=== PATIENT | male | born 1955 | race Caucasian/White ===

== ENCOUNTER 2020-09-03 09:42 | Inpatient (IN) | payer BC ==
[~2020-09-03] VITALS: Ht 193 cm; Wt 79.6 kg
[2020-09-03] VITALS (584 sets, daily range): BP systolic 101–136; BP diastolic 75–96; PULSE 88–110; TEMP 97.7–98.7; O2SAT 62–100
[~2020-09-03 09:42] MED LIST: DIOVAN HCT 12.51 TA1 PO; HYZAAR 25 MG-101 TAB PO; NEURONTIN100 MG/CAP PO; PLAVIX 75MG TAB75 MG PO
[2020-09-03 10:40] LABS: MEAN CELL VOLUME 96 fl (80.0-100.0); MEAN CORPUSCULAR HGB CONC 31 g/dl (33.0-37.0); MEAN PLATELET VOLUME 11.1 fl (7.4-10.4); PLATELET COUNT 210 K/mm3 (130-400); RED BLOOD COUNT 3.01 M/mm3 (4.20-5.60); REDCELL DISTRIBUTION WIDTH-CV 15.5 % (11.5-14.5)
[2020-09-03 10:49] LABS: INR 1.1 (0.8-3.0); PROTHROMBIN TIME 12.8 SECONDS (9.7-12.8)
[2020-09-03 10:54] LABS: HEMOGLOBIN 9.1 g/dl (13.5-18.0); MEAN CORPUSCULAR HEMOGLOBIN 30 pg (27.0-31.0)
[2020-09-03 10:56] LABS: ALBUMIN 3.1 gm/dL (3.5-5.0); BILIRUBIN,TOTAL 0.3 mg/dL (0.0-1.0); C-REACTIVE PROTEIN 1.4 mg/dL (0.0-0.9); CALCIUM 8.1 mg/dL (8.4-10.2); CREATININE, serum 1.06 (0.66-1.25); POTASSIUM 4.5 mmol/L (3.4-5.0); TOTAL PROTEIN 5.5 gm/dL (6.4-8.2)
[2020-09-03 11:05] LABS: LYMPHOCYTE 7 % (20.0-51.0); NEUTROPHILS 87 % (42.0-75.2)
[2020-09-03 11:06] LABS: HYPOCHROMIA 3+; OVALOCYTES 1+; PLATELET ESTIMATE NORMAL (NORMAL); POIKILOCYTOSIS 1+; SCHISTOCYTES 1+
[2020-09-03 11:31] LABS: HEMATOCRIT 25.3 % (42.0-52.0); HEMOGLOBIN 8.1 g/dl (13.5-18.0)
[2020-09-03 12:58] LABS: COLLECTION METHOD CLEAN CATCH
[2020-09-03 13:05] LABS: MUCOUS Present /lpf; PH 5 (5-8); SQUAMOUS EPITHELIAL None Seen /hpf; URINE APPEARANCE Clear; URINE BACTERIA None Seen /hpf; URINE BILIRUBIN Negative (NEGATIVE); URINE BLOOD 2+ (NEGATIVE); URINE COLOR Yellow; URINE GLUCOSE Negative (NEGATIVE); URINE KETONE Negative (NEGATIVE); URINE LEUKOCYTE ESTERASE Negative (NEGATIVE); URINE NITRATE Negative (NEGATIVE); URINE PROTEIN(semi-quant) Negative (NEGATIVE); URINE UROBILINOGEN Negative (NEGATIVE)
--- NOTE | 2020-09-03 13:33 | NUR ---
PT ADMITTED FROM ED WITH GI BLEED. PT TRANSFERED TO BED. VSS. PT SHOWING SR ON TELE. PT IS AXOX4. PT RECEIVED ONE UNIT PRBC IN ER. PT HAS R IJ CENTRAL PLACED IN ED. PT ORIENTED TO ROOM AND FLOOR. WILL CONTINUE TO [facility]. BEDSIDE.
[2020-09-03] MEDS ORDERED: ASPIRIN E.C. 8181 MG PO (14:35)
[2020-09-03] MEDS ORDERED: PLAVIX 75MG TAB75 MG PO (14:35)
[2020-09-03] MEDS ORDERED: [UNRECOGNIZED DRUG - OTHER] PO (14:44)
[2020-09-03 15:59] LABS: HEMATOCRIT 29.6 % (42.0-52.0); HEMOGLOBIN 9.8 g/dl (13.5-18.0)
[2020-09-03 16:25] LABS: ARTERIAL BLD GAS TCO2 CT 25.8; ARTERIAL BLOOD GAS HCO3 24.7 meq/L (22-26); ARTERIAL BLOOD GAS PCO2 35.9 mmHg (35-45); ARTERIAL BLOOD GAS PO2 82.5 mmHg (80-100); ARTERIAL BLOOD GAS pH 7.46 (7.35-7.45)
--- NOTE | 2020-09-03 17:11 | NUR ---
PT HAD A SMALL MAROON STOOL. PT'S VSS. PT DENIES DIZZINESS OR LIGHTHEADEDNESS. WILL CONTINUE TO MONITOR.
--- NOTE | 2020-09-03 17:24 | NUR ---
ON UNIT AND NOTIFIED OF PREVIOUS MAROON STOOL. NEXT H/H AT 2200. NO NEW ORDERS AT THIS TIME.
--- NOTE | 2020-09-03 20:13 | NUR ---
Patient reporting 7/10 throbbing right neck pain at insersion site of Right IJ. Patient received PRN tylenol earlier in the day for this pain but per patient was not effective. Site is clean dry and intact. Draws blood without difficulty. Patient also having frequent PVC's which have been present since arrival to the ICU. Called [facility] physician and received an order for PRN [place] and to obtain a BMP. Provider stated he would put in these orders.
[2020-09-03 21:03] LABS: CALCIUM 7.5 mg/dL (8.4-10.2); CREATININE, serum 0.85 (0.66-1.25); POTASSIUM 3.8 mmol/L (3.4-5.0)
[2020-09-03 22:10] LABS: HEMATOCRIT 26.1 % (42.0-52.0); HEMOGLOBIN 8.8 g/dl (13.5-18.0)
--- NOTE | 2020-09-03 22:29 | NUR ---
Received verbal consent from patient to update niece via telephone. All questions and concerns addressed at this time.
[2020-09-04] VITALS (551 sets, daily range): BP systolic 102–120; BP diastolic 68–91; PULSE 56–72; TEMP 97.7–98.2; O2SAT 76–100
[2020-09-04 06:27] LABS: BASO # 0.1 (0.0-0.2); BASO % 0.5 % (0.0-2.0); EOS # 0.3 (0.0-0.7); EOS % 2.7 % (0-4.0); GRAN # 6.2 (1.4-6.5); GRAN % 65.5 % (42.2-75.2); LYMPH % 21.1 % (20.0-51.0); MEAN CELL VOLUME 94 fl (80.0-100.0); MEAN CORPUSCULAR HGB CONC 32 g/dl (33.0-37.0); MEAN PLATELET VOLUME 10.6 fl (7.4-10.4); MONO # 0.9 (0.1-0.6); MONO % 9.5 % (1.7-9.3); PLATELET COUNT 132 K/mm3 (130-400); REDCELL DISTRIBUTION WIDTH-CV 16.1 % (11.5-14.5)
[2020-09-04 06:34] LABS: HEMATOCRIT 25.4 % (42.0-52.0); HEMOGLOBIN 8.1 g/dl (13.5-18.0); MEAN CORPUSCULAR HEMOGLOBIN 30 pg (27.0-31.0)
[2020-09-04 06:39] LABS: INR 1.1 (0.8-3.0); PROTHROMBIN TIME 12.8 SECONDS (9.7-12.8)
[2020-09-04 06:40] LABS: ALBUMIN 2.3 gm/dL (3.5-5.0); BILIRUBIN,TOTAL 0.4 mg/dL (0.0-1.0); CALCIUM 7.6 mg/dL (8.4-10.2); CREATININE, serum 0.83 (0.66-1.25); POTASSIUM 3.8 mmol/L (3.4-5.0); TOTAL PROTEIN 4.3 gm/dL (6.4-8.2)
--- NOTE | 2020-09-04 10:08 | NUR ---
Initial visit; Patient thanked Medical Registrar for looking in on him and offering encouragement and God's blessings.
--- NOTE | 2020-09-04 10:30 | NUR ---
Report given to KEEGAN Milian on medical floor. Patient brought to room 358. on tele monitor with IVF running, via wheelchair. Patient settled in room, RN called and notified that patient in room. Left patient with call light.
--- NOTE | 2020-09-04 10:54 | NUR ---
Pt arrived to medical unit room 358 at this time from ICU via WC. Report received from ORDNANCE ENGINEERING TECHNICIAN. Pt oriented to room. Assessment complete. Pt unable to confirm medications, PCP contacted for updated list. A&Ox4. Heart RRR. Lungs CTA. Bowel sounds audible all quadrants. Reports generalized chronic body aches and moderate pain to RIJ site. Right IJ w/o visible signs of complication. Call light in reach. Denies other needs.
[2020-09-04] MEDS ORDERED: LIPITOR 40MG TA40 MG PO (12:57)
[2020-09-04] MEDS ORDERED: ELIQUIS 5MG PO (13:00)
[2020-09-04] MEDS ORDERED: [UNRECOGNIZED DRUG - OTHER] PO (13:00)
[2020-09-04] MEDS ORDERED: TOPROL XL 25MG25 MG PO (13:01)
[2020-09-04] MEDS ORDERED: NORCO 325 MG-51 TAB PO (13:01)
[2020-09-04] MEDS ORDERED: CEPHALEXIN500 M1 PO (13:03)
[2020-09-04 16:42] LABS: HEMATOCRIT 24.3 % (42.0-52.0)
--- NOTE | 2020-09-04 18:33 | NUR ---
Occasional complaints of chronic body aches today, relieved by norco. No BMs since arrival to unit. LR currently infusing at 63 ml/hr. Pt resting in bed w/o complaint.
--- NOTE | 2020-09-04 20:00 | NUR ---
Report received, assumed care for welder 2nd shift. Assessment complete. VS stable. A&Ox3, Denies nausea/shortness of breath. States he hasnt had any bloody stools today. Rating pain to abdomen 6/10-described as ache-burn. [place] given per dr martins. Plan of care discussed for this shift to include HS meds/pain meds/antibiotics/calling for questions/concerns. Verbalizes understanding/denies needs. Call light in reach. will monitor.
[2020-09-05] VITALS (7 sets, daily range): BP systolic 103–124; BP diastolic 53–72; PULSE 63–86; TEMP 97.3–98.3
--- NOTE | 2020-09-05 05:37 | NUR ---
Rested off and on this shift. Received norco x2 for abdominal pain. Had several loose stools-brown in color-no blood noted. VS remained stable. Denies current needs. Call light in reach. Will monitor.
--- NOTE | 2020-09-05 07:10 | NUR ---
PATIENT CURRENTLY RESTING WITH CPAP ON. PATIENT DOES NOT C/O ANY PAIN AT THIS TIME. DENIES ANY NEEDS. WILL CONTINUE TO MONITOR. BED IN LOWEST POSITION. BED ALARM ON. CALL LIGHT WITHIN REACH.
[2020-09-05 07:14] LABS: BASO # 0.1 (0.0-0.2); BASO % 0.5 % (0.0-2.0); EOS # 0.4 (0.0-0.7); EOS % 4.8 % (0-4.0); GRAN # 6.3 (1.4-6.5); GRAN % 68.1 % (42.2-75.2); LYMPH # 1.6 (1.2-3.4); LYMPH % 17.1 % (20.0-51.0); MEAN CELL VOLUME 92 fl (80.0-100.0); MEAN CORPUSCULAR HGB CONC 33 g/dl (33.0-37.0); MONO # 0.8 (0.1-0.6); MONO % 8.7 % (1.7-9.3); PLATELET COUNT 140 K/mm3 (130-400); RED BLOOD COUNT 2.57 M/mm3 (4.20-5.60); REDCELL DISTRIBUTION WIDTH-CV 15.7 % (11.5-14.5)
[2020-09-05 07:23] LABS: HEMATOCRIT 23.6 % (42.0-52.0); HEMOGLOBIN 7.8 g/dl (13.5-18.0); MEAN CORPUSCULAR HEMOGLOBIN 30 pg (27.0-31.0)
[2020-09-05 07:24] LABS: PROTHROMBIN TIME 11.6 SECONDS (9.7-12.8)
[2020-09-05 07:31] LABS: ALBUMIN 2.4 gm/dL (3.5-5.0); BILIRUBIN,TOTAL 0.3 mg/dL (0.0-1.0); CALCIUM 7.9 mg/dL (8.4-10.2); CREATININE, serum 0.86 (0.66-1.25); POTASSIUM 3.9 mmol/L (3.4-5.0); TOTAL PROTEIN 4.5 gm/dL (6.4-8.2)
--- NOTE | 2020-09-05 11:28 | NUR ---
AUBRIE met with the patient to discuss discharge plan. The patient lives alone in [place]. His daughter, Jennifer (ph#[phone]), lives in [place]. He reports independence with ADLs and does not have any DME. The patient's PCP is Dr. Maria Guadalupe Alvarado and he receives his medications from [facility]. He reports no difficulties obtaining his meds. The patient does not have a DPOA-HC in EMR, but he states that he may have one completed and that his nephew, Kimo (ph#[phone]), or Kimo's would have been designated as his DPOA-HC. The patient states that he is not and has two living children: Jennifer and Ephraim. The patient plans to return home upon discharge. AUBRIE contacted the patient's nephew, Kimo. Kimo states that he believes that he does have a copy of the patient's DPOA-HC and that his , Shelby, is the patient's DPOA-HC. Kimo plans to talk to Shelby and look for the DPOA-HC. AUBRIE provided him with AUBRIE's phone number and email address. AUBRIE then received a phone call from Shelby. Shelby confirms that she is the patient's DPOA-HC and that she can email the document to AUBRIE tomorrow. Shelby reports that her legal name is Nasreen Devlin. AUBRIE to continue to follow as needed.
[2020-09-05 16:36] LABS: HEMOGLOBIN 7.8 g/dl (13.5-18.0)
--- NOTE | 2020-09-05 18:51 | NUR ---
BEDSIDE REPORT GIVEN TO KEEGAN MARK. PATIENT CURRENTLY SITTING UP IN BED VISITING WITH HIS DAUGHTER. DOES NOT COMPLAIN OF PAIN AT THIS TIME. CALL LIGHT IN REACH. BED IN LOWEST POSIION.
--- NOTE | 2020-09-05 19:49 | NUR ---
PATIENT WAS RECEIVED FAIR IN BED ON RA.IVFS ON GOOD PROGRESS.DENIES PAIN NO NEEDS AT THIS TIME.
[2020-09-06 03:52] VITALS: BP 129/81; PULSE 65; TEMP 97.8
--- NOTE | 2020-09-06 04:44 | NUR ---
Teo RN notified patient pulse decreases to high 40s nonsustained, currently 61. Teo RN will check on patient.
--- NOTE | 2020-09-06 04:52 | NUR ---
CRITICAL CARE CALLED ABOUT PTS HR GOING DOWN TO THE 40S AND HAVING MULTIFOCAL PVCS.CHECKED ON THE PATIENT HE IS FINE WITH NO CONCERNS.
--- NOTE | 2020-09-06 05:48 | NUR ---
PATIENT HAD A MANNY,IVFS CONTINUED.PT IS ON ROOM AIR.NO OTHER CONCERNS AT THIS TIME.
--- NOTE | 2020-09-06 07:05 | NUR ---
awake resting in bed, bedside shift report received from KEEGAN Bruce
[2020-09-06 07:09] LABS: PROTHROMBIN TIME 11.7 SECONDS (9.7-12.8)
[2020-09-06 07:13] LABS: BASO # 0.1 (0.0-0.2); BASO % 0.7 % (0.0-2.0); EOS # 0.5 (0.0-0.7); EOS % 6.1 % (0-4.0); GRAN # 5.6 (1.4-6.5); GRAN % 63.1 % (42.2-75.2); LYMPH # 1.8 (1.2-3.4); LYMPH % 20.5 % (20.0-51.0); MEAN CELL VOLUME 92 fl (80.0-100.0); MEAN CORPUSCULAR HGB CONC 33 g/dl (33.0-37.0); MEAN PLATELET VOLUME 10.8 fl (7.4-10.4); MONO # 0.8 (0.1-0.6); MONO % 8.6 % (1.7-9.3); PLATELET COUNT 176 K/mm3 (130-400); RED BLOOD COUNT 2.85 M/mm3 (4.20-5.60); REDCELL DISTRIBUTION WIDTH-CV 15.2 % (11.5-14.5)
[2020-09-06 07:17] LABS: HEMATOCRIT 26.1 % (42.0-52.0); HEMOGLOBIN 8.6 g/dl (13.5-18.0); MEAN CORPUSCULAR HEMOGLOBIN 30 pg (27.0-31.0)
[2020-09-06 07:23] LABS: ALBUMIN 2.9 gm/dL (3.5-5.0); BILIRUBIN,TOTAL 0.4 mg/dL (0.0-1.0); CALCIUM 8.5 mg/dL (8.4-10.2); CREATININE, serum 0.74 (0.66-1.25); POTASSIUM 3.7 mmol/L (3.4-5.0); TOTAL PROTEIN 5.2 gm/dL (6.4-8.2)
--- NOTE | 2020-09-06 07:45 | NUR ---
resting in bed and has had breakfast, full assessment completed, see interventions for further info, c/o pain to back and neck and medicated with hydrocodone 5mg 1 tab
[2020-09-06 08:11] VITALS: BP 124/78; PULSE 74; TEMP 98.3
--- NOTE | 2020-09-06 09:55 | NUR ---
occupational therapy in to work with patient,
--- NOTE | 2020-09-06 10:10 | NUR ---
up to bathroom and had semi liquid light black stool, specimen to th elab
--- NOTE | 2020-09-06 10:34 | NUR ---
SW received the patient's DPOA-HC and Living Will, via email from the patient's [id number], Teri Medina". SW placed the documents in the patient's chart. The patient's DPOA-HC is Shelby.
[2020-09-06 11:21] VITALS: BP 119/73; PULSE 71; TEMP 98.3
--- NOTE | 2020-09-06 12:00 | NUR ---
sitting up in bed eating lunch, states pain is beginning to return, will notify nurse when needs a pain pill
[2020-09-06 12:04] LABS: CLOSTRIDIUM DIFF A/B NEG; CLOSTRIDIUM DIFF A/B INTERP NonToxigenic C.diff
--- NOTE | 2020-09-06 13:30 | NUR ---
restint in bed, denies needs
--- NOTE | 2020-09-06 16:30 | NUR ---
continues to be in bed, has only had 3 semi liquid stools today
[2020-09-06 17:06] VITALS: BP 118/81; PULSE 61; TEMP 98.5
--- NOTE | 2020-09-06 17:15 | NUR ---
sitting up in bed eating supper, denies needs
[2020-09-06 20:00] VITALS: BP 108/72; PULSE 62; TEMP 98.2
--- NOTE | 2020-09-06 20:00 | NUR ---
PATIENT WAS RECEIVED CALM IN BED.DUE MEDS GIVEN,ASSESSMENT DONE.REPORTS PAIN,NORCO FIVEN.NO OTHER NEEDS AT THIS TIME
[2020-09-07 00:34] VITALS: BP 116/74; PULSE 67; TEMP 98.2
[2020-09-07 03:23] VITALS: BP 130/77; PULSE 68; TEMP 97.7
--- NOTE | 2020-09-07 05:23 | NUR ---
PATIENT HAD A RESTFUL NIGHT.DENIES DIARRHEA.DUE MEDS GIVEN PER MAR.NO OTHER NEEDS AT THIS TIME.
[2020-09-07 06:36] LABS: BASO # 0.1 (0.0-0.2); EOS # 0.6 (0.0-0.7); EOS % 6.6 % (0-4.0); GRAN # 5.2 (1.4-6.5); GRAN % 62.4 % (42.2-75.2); LYMPH # 1.7 (1.2-3.4); MEAN CELL VOLUME 93 fl (80.0-100.0); MEAN CORPUSCULAR HGB CONC 33 g/dl (33.0-37.0); MEAN PLATELET VOLUME 11.1 fl (7.4-10.4); MONO # 0.7 (0.1-0.6); MONO % 8.9 % (1.7-9.3); PLATELET COUNT 188 K/mm3 (130-400); REDCELL DISTRIBUTION WIDTH-CV 15.1 % (11.5-14.5)
--- NOTE | 2020-09-07 06:50 | NUR ---
Report with KEEGAN Bruce. Pt resting in bed with eyes closed, resp even and unlabored. Call light in reach.
[2020-09-07 06:51] LABS: HEMATOCRIT 25.2 % (42.0-52.0); HEMOGLOBIN 8.2 g/dl (13.5-18.0); MEAN CORPUSCULAR HEMOGLOBIN 30 pg (27.0-31.0)
[2020-09-07 06:54] LABS: CALCIUM 8.6 mg/dL (8.4-10.2); CREATININE, serum 0.79 (0.66-1.25); POTASSIUM 4.1 mmol/L (3.4-5.0)
--- NOTE | 2020-09-07 08:30 | NUR ---
Assessment complete. Pt sitting up in bed, A&O x 4, reports pain to legs and back 7 out of 10, PRN medication administered per orders. Pt also reports new pain to left side that improves with certain positioning, denies loose stools over night or this morning. Saline lock IV to left AC and right IJ triple lumen catheter without s/s of complicatins. No further needs reported. Call light in reach.
[2020-09-07 08:45] VITALS: BP 118/76; PULSE 72; TEMP 97.9
[2020-09-07] MEDS ORDERED: VANCOCIN H125 MG/CAP PO (09:30)
[2020-09-07] MEDS ORDERED: SPIRIVA RE2.5 MCG/Ac IH (09:30)
[2020-09-07] MEDS ORDERED: PROAIR HFA0.09 MG/AC IH (09:31)
[2020-09-07 12:02] VITALS: BP 109/74; PULSE 69; TEMP 98.4
[2020-09-07] MEDS ORDERED: NORCO 325 MG-51 TAB PO (14:48)
--- NOTE | 2020-09-07 16:58 | NUR ---
Discharge instructions reviewed with pt regarding new medications and follow-up appointments. Pt verbalizes understanding, discharged home, escorted out of facility via WC accompanied by ATM MECHANIC. Pt's daughter providing transportation home.
== END 2020-09-07 16:59 | disposition home or self-care (01) | DRG 871 ==
LOC: COL.ER 09:42 → MEDICAL 11:08 → ICU 11:08 → MEDICAL 09-04 10:56
PROVIDERS: Family Medicine; Hospitalist; Physician Assistant; ADMIT Internal Medicine
PROC: 02HV33Z Insertion of Infusion Device into Superior Vena Cava, Percutaneous Approach (ICD-10-PCS; principal; 2020-09-03)
DX: A41.9 Sepsis, unspecified organism (principal); R57.1 Hypovolemic shock; K57.91 Diverticulosis of intestine, part unspecified, without perforation or abscess with bleeding; E87.2 Acidosis; A04.72 Enterocolitis due to Clostridium difficile, not specified as recurrent; D62 Acute posthemorrhagic anemia; R65.20 Severe sepsis without septic shock; I72.3 Aneurysm of iliac artery; J44.9 Chronic obstructive pulmonary disease, unspecified; Z20.822 Contact with and (suspected) exposure to COVID-19; I73.9 Peripheral vascular disease, unspecified; I10 Essential (primary) hypertension; R00.0 Tachycardia, unspecified; Z79.02 Long term (current) use of antithrombotics/antiplatelets; Z95.5 Presence of coronary angioplasty implant and graft; Z87.891 Personal history of nicotine dependence
CPT/HCPCS: 99223-AI; 99232-AI; 99233-AI; 99239; C9113; J0696; J2405; J2543; J7030; J7120; P9016; Q9967

== ENCOUNTER 2020-10-13 07:52 | Day surgery (SDC) | payer BC ==
[~2020-10-13] VITALS: Ht 193 cm; Wt 80.5 kg
[~2020-10-13 07:52] MED LIST changes: +ASPIRIN E.C. 8181 MG PO; +CEPHALEXIN500 M1 PO; +ELIQUIS 5MG PO; +LIPITOR 40MG TA40 MG PO; +NORCO 325 MG-51 TAB PO; +PROAIR HFA0.09 MG/AC IH; +SPIRIVA RE2.5 MCG/Ac IH; +TOPROL XL 25MG25 MG PO; +VANCOCIN H125 MG/CAP PO; +[UNRECOGNIZED DRUG - OTHER] PO; +[UNRECOGNIZED DRUG - OTHER] PO
[2020-10-13 08:56] VITALS: BP 142/92; PULSE 60; TEMP 98.7
[2020-10-13 09:55] VITALS: BP 13/80; PULSE 78; TEMP 96.6
--- NOTE | 2020-10-13 09:55 | NUR ---
pt to bay 5 via cart from endo lab, pt walked to chair, gait steady. in room, offered snack and fluids, no c/o, call light in reach
[2020-10-13 10:10] VITALS: BP 137/98; PULSE 74
[2020-10-13 10:25] VITALS: BP 122/88; PULSE 70
--- NOTE | 2020-10-13 10:25 | NUR ---
Dr here to talk with pt concerning results, int d'cd intact, reviewed discharge inst. with pt on precautions, followup care with verbal understanding.
--- NOTE | 2020-10-13 10:50 | NUR ---
pt up in room dressed, no c/o, discharged via w/c to car
== END 2020-10-13 10:50 | disposition home or self-care (01) ==
LOC: SDCO 07:52
DX: Z12.11 Encounter for screening for malignant neoplasm of colon (principal); K57.30 Diverticulosis of large intestine without perforation or abscess without bleeding; K29.30 Chronic superficial gastritis without bleeding; K52.9 Noninfective gastroenteritis and colitis, unspecified; D50.0 Iron deficiency anemia secondary to blood loss (chronic); K21.00 Gastro-esophageal reflux disease with esophagitis, without bleeding; K29.80 Duodenitis without bleeding; K92.1 Melena; K62.89 Other specified diseases of anus and rectum; I10 Essential (primary) hypertension; I73.9 Peripheral vascular disease, unspecified; J44.9 Chronic obstructive pulmonary disease, unspecified; Z87.891 Personal history of nicotine dependence; G89.29 Other chronic pain; G62.9 Polyneuropathy, unspecified; Z20.822 Contact with and (suspected) exposure to COVID-19; M19.90 Unspecified osteoarthritis, unspecified site
CPT/HCPCS: J2704; J3010; J7120

== ENCOUNTER → 2021-01-12 | Outpatient (CLI) | payer BC ==
[~2021-01-12] MED LIST changes: +FERROUS SU325 MG/TAB PO; +INCRUSE EL62.5 MCG/A IH; +LIALDA 1.2 GM1.2 GM PO; +PREDNISONE10 MG PO
== END ==
LOC: COL.RAD 06:58
DX: Z12.2 Encounter for screening for malignant neoplasm of respiratory organs (principal); Z87.891 Personal history of nicotine dependence

== ENCOUNTER 2021-01-21 15:32 | Inpatient (IN) | payer BC ==
[~2021-01-21] VITALS: Ht 193 cm; Wt 77.3 kg
[~2021-01-21 15:32] MED LIST changes: -FERROUS SU325 MG/TAB PO; -INCRUSE EL62.5 MCG/A IH; -LIALDA 1.2 GM1.2 GM PO; -PREDNISONE10 MG PO
[2021-01-21 16:31] LABS: BASO # 0.1 (0.0-0.2); BASO % 0.7 % (0.0-2.0); EOS # 0.5 (0.0-0.7); EOS % 4.4 % (0-4.0); GRAN # 7.2 (1.4-6.5); GRAN % 68.1 % (42.2-75.2); HEMOGLOBIN 10.5 g/dl (13.5-18.0); LYMPH # 1.3 (1.2-3.4); LYMPH % 12.8 % (20.0-51.0); MEAN CELL VOLUME 78 fl (80.0-100.0); MEAN CORPUSCULAR HEMOGLOBIN 24 pg (27.0-31.0); MEAN CORPUSCULAR HGB CONC 31 g/dl (33.0-37.0); MEAN PLATELET VOLUME 10.4 fl (7.4-10.4); MONO # 1.4 (0.1-0.6); MONO % 13.3 % (1.7-9.3); PLATELET COUNT 428 K/mm3 (130-400); REDCELL DISTRIBUTION WIDTH-CV 22.7 % (11.5-14.5)
[2021-01-21 16:32] LABS: ALBUMIN 3.1 gm/dL (3.5-5.0); BILIRUBIN,TOTAL 0.2 mg/dL (0.0-1.0); CALCIUM 8.7 mg/dL (8.4-10.2); CREATININE, serum 0.67 (0.66-1.25); POTASSIUM 3.7 mmol/L (3.4-5.0); TOTAL PROTEIN 6.5 gm/dL (6.4-8.2)
[2021-01-21] MEDS ORDERED: INCRUSE EL62.5 MCG/A IH (16:33)
[2021-01-21 16:35] LABS: HEMATOCRIT 34.3 % (42.0-52.0)
[2021-01-21] MEDS ORDERED: NORCO 325 MG-51 TAB PO (18:33)
[2021-01-21 19:22] LABS: CLOSTRIDIUM DIFF A/B NEG; CLOSTRIDIUM DIFF A/B INTERP NonToxigenic C.diff
[2021-01-21 20:15] LABS: INR 1.2 (0.8-3.0); PROTHROMBIN TIME 13.5 SECONDS (9.7-12.8)
[2021-01-21 20:18] LABS: PARTIAL THROMBOPLASTIN TIME 27.9 SECONDS (26.0-37.0)
[2021-01-21 20:44] VITALS: BP 112/74; PULSE 82; TEMP 98.7
--- NOTE | 2021-01-21 22:50 | NUR ---
Pt came for GI Bleed. Pain rated 0/10. VSS. Pt has only one episode of bloody stool. Currently NPO. Will continue to monitor.
[2021-01-22] VITALS (8 sets, daily range): BP systolic 106–153; BP diastolic 61–103; PULSE 63–88; TEMP 97.7–99.5
[2021-01-22 00:45] LABS: HEMATOCRIT 30.5 % (42.0-52.0); HEMOGLOBIN 9.3 g/dl (13.5-18.0)
--- NOTE | 2021-01-22 03:58 | NUR ---
Pt is having bloody stool. currently on contact isolation for cdiff. Will continue to monitor.
[2021-01-22 07:21] LABS: MEAN CELL VOLUME 79 fl (80.0-100.0); MEAN CORPUSCULAR HGB CONC 31 g/dl (33.0-37.0); MEAN PLATELET VOLUME 10.8 fl (7.4-10.4); PLATELET COUNT 369 K/mm3 (130-400); RED BLOOD COUNT 3.74 M/mm3 (4.20-5.60); REDCELL DISTRIBUTION WIDTH-CV 22.4 % (11.5-14.5)
[2021-01-22 07:23] LABS: HEMATOCRIT 29.4 % (42.0-52.0); HEMOGLOBIN 9.1 g/dl (13.5-18.0); MEAN CORPUSCULAR HEMOGLOBIN 24 pg (27.0-31.0)
[2021-01-22 07:32] LABS: CALCIUM 8.2 mg/dL (8.4-10.2); CREATININE, serum 0.65 (0.66-1.25); POTASSIUM 3.8 mmol/L (3.4-5.0)
[2021-01-22 08:14] LABS: BAND 35 % (0-10); EOSINOPHIL 2 % (0-4); HYPOCHROMIA 1+; LYMPHOCYTE 14 % (20.0-51.0); METAMYELOCYTE 1 % (0-0); NEUTROPHILS 36 % (42.0-75.2); OVALOCYTES 1+; PLATELET ESTIMATE NORMAL (NORMAL); SCHISTOCYTES 1+
--- NOTE | 2021-01-22 10:59 | NUR ---
Patient is in bed, alert and oriented, VSS. reports no significant pain at this time. Fluids running. Order for UA. No further needs at this time. Call ligth within reach.
[2021-01-22 12:06] LABS: COLLECTION METHOD CLEAN CATCH
[2021-01-22 12:15] LABS: MUCOUS Present /lpf; PH 5 (5-8); SQUAMOUS EPITHELIAL 0-2 /hpf; URINE APPEARANCE Hazy; URINE BACTERIA None Seen /hpf; URINE BILIRUBIN Negative (NEGATIVE); URINE BLOOD Negative (NEGATIVE); URINE COLOR Yellow; URINE GLUCOSE Negative (NEGATIVE); URINE KETONE Negative (NEGATIVE); URINE LEUKOCYTE ESTERASE Negative (NEGATIVE); URINE NITRATE Negative (NEGATIVE); URINE PROTEIN(semi-quant) Negative (NEGATIVE); URINE RBC 0-2 /hpf; URINE UROBILINOGEN Negative (NEGATIVE)
--- NOTE | 2021-01-22 12:24 | NUR ---
Initial visit; Patient appeared unhappy to be interrupted. Supervisor Post Wave offered God's blessings and wished him well.
[2021-01-22 16:24] LABS: HEMATOCRIT 30.1 % (42.0-52.0); HEMOGLOBIN 9.1 g/dl (13.5-18.0)
--- NOTE | 2021-01-22 18:09 | NUR ---
Patient is oding ok along the day. VSS, Pain has being a constant and it is under control with prescribed medication. Reports no nausea or vomiting. No further needs at this time. Call light within reach.
--- NOTE | 2021-01-22 18:30 | NUR ---
Patient refusing liquid tray. Reports that he does not feel like having anything.
--- NOTE | 2021-01-22 18:30 | NUR ---
Patient report that he had 2 BM but not blood in them.
--- NOTE | 2021-01-22 21:16 | NUR ---
Pt seems a little depressed today. Pain rated 6/10. Dilaudid was given. Vss. Will continue to monitor.
[2021-01-23 03:51] VITALS: BP 110/69; PULSE 75; TEMP 98
[2021-01-23 07:14] LABS: BASO # 0.1 (0.0-0.2); BASO % 0.8 % (0.0-2.0); EOS # 0.3 (0.0-0.7); GRAN # 5.4 (1.4-6.5); GRAN % 63.8 % (42.2-75.2); HEMOGLOBIN 9.8 g/dl (13.5-18.0); LYMPH # 1.3 (1.2-3.4); LYMPH % 15.5 % (20.0-51.0); MEAN CELL VOLUME 80 fl (80.0-100.0); MEAN CORPUSCULAR HEMOGLOBIN 25 pg (27.0-31.0); MEAN CORPUSCULAR HGB CONC 31 g/dl (33.0-37.0); MEAN PLATELET VOLUME 11.3 fl (7.4-10.4); MONO # 1.3 (0.1-0.6); MONO % 15.3 % (1.7-9.3); PLATELET COUNT 387 K/mm3 (130-400); RED BLOOD COUNT 3.99 M/mm3 (4.20-5.60); REDCELL DISTRIBUTION WIDTH-CV 22.7 % (11.5-14.5)
[2021-01-23 07:23] LABS: ALBUMIN 2.6 gm/dL (3.5-5.0); BILIRUBIN,TOTAL 0.2 mg/dL (0.0-1.0); CALCIUM 8.3 mg/dL (8.4-10.2); CREATININE, serum 0.79 (0.66-1.25); POTASSIUM 3.8 mmol/L (3.4-5.0); TOTAL PROTEIN 5.7 gm/dL (6.4-8.2)
--- NOTE | 2021-01-23 07:34 | NUR ---
Patient is resting in bed watching TV, alert and oriented x4, reports pain in his abdomen of 5 out of 10, refuse pain medication at this time. No nause or vomiting. Last bowel movement at 0200 with clots and red blood. NS Fluids running at [address] Reports no appetite. No further needs at this time.
[2021-01-23 09:37] VITALS: BP 111/70; PULSE 80; TEMP 98
--- NOTE | 2021-01-23 11:40 | NUR ---
Plan is home independently unless otherwise specified by the doctor. SW completed phone assessment due to precautions. SW called room phone, patient agreeable to the assessment. Patient reports that he resides in [facility]. Patient reports that his PCP is Maria Guadalupe Miller at [facility]. Patient reports that he last visited a month ago. Patient shares that he also sees Dr. Haskins for Stints in legs and Dr. Marie for Uri, Dr. Odom/ Roberta for GI. Patient reports that he obtains medications from [facility] in [place]. Patient denies having use of any DME or care supports. Patient reports that he is not sure what else he may need because he does not feel like he know what is going on. Patient reports that is pain is a 6 and would like it managed. SW educated on services with case management. Will continue to follow for care.
[2021-01-23 12:59] VITALS: BP 91/65; PULSE 70; TEMP 98.2
[2021-01-23 16:05] VITALS: BP 102/82; PULSE 76; TEMP 97.8
--- NOTE | 2021-01-23 17:06 | NUR ---
Patient ask for pain medication. Rating 6 out of 10. PRN provided.
--- NOTE | 2021-01-23 18:33 | NUR ---
Patient is resting in bed, watching TV. Reports minimal changes in pain. Last BM at 1600. Indicates it was with some blood in it. Fluids running at 75ml/hr. Flagyl infusing. Refused to have dinner. No further needs at this time. Call light within reach.
[2021-01-23 19:25] VITALS: BP 93/68; PULSE 70; TEMP 98
--- NOTE | 2021-01-23 21:58 | NUR ---
Pt has been complaining about nausea. Zofran was given. Pain rated 0/10. BP is litlle soft. Will conitue to monitor.
[2021-01-23 23:59] VITALS: BP 96/79; PULSE 79; TEMP 98.5
[2021-01-24 03:54] VITALS: BP 105/79; PULSE 89; TEMP 98.3
[2021-01-24 06:54] LABS: BASO # 0.1 (0.0-0.2); BASO % 0.9 % (0.0-2.0); EOS # 0.4 (0.0-0.7); EOS % 4.2 % (0-4.0); GRAN # 6.4 (1.4-6.5); GRAN % 68.7 % (42.2-75.2); LYMPH % 11.2 % (20.0-51.0); MEAN CELL VOLUME 79 fl (80.0-100.0); MEAN CORPUSCULAR HGB CONC 30 g/dl (33.0-37.0); MEAN PLATELET VOLUME 11.2 fl (7.4-10.4); MONO # 1.3 (0.1-0.6); MONO % 14.4 % (1.7-9.3); PLATELET COUNT 352 K/mm3 (130-400); RED BLOOD COUNT 3.88 M/mm3 (4.20-5.60); REDCELL DISTRIBUTION WIDTH-CV 22.3 % (11.5-14.5)
[2021-01-24 06:58] LABS: HEMATOCRIT 30.7 % (42.0-52.0); HEMOGLOBIN 9.3 g/dl (13.5-18.0); MEAN CORPUSCULAR HEMOGLOBIN 24 pg (27.0-31.0)
[2021-01-24 07:03] LABS: CREATININE, serum 0.75 (0.66-1.25); POTASSIUM 3.3 mmol/L (3.4-5.0)
[2021-01-24 07:30] VITALS: BP 94/64; PULSE 68; TEMP 97.5
--- NOTE | 2021-01-24 10:15 | NUR ---
Patient told his primary nurse that he would not consent to a colonoscopy until he knew it was covered by insurance. I discussed with the patient that he is inpatient status and [facility] has approved his stay and that the colonoscopy is associated with his admission and should be covered under the stay. I answered his questions and offered to come back if he has any more he thinks of. Michelle Mitchell was present for the discussion as well.
--- NOTE | 2021-01-24 10:48 | NUR ---
Patient is resting in bed, alert and oriented x 4. Reports pain of 6 and nausea. PRN provided. He asked for help to get his breakfast and the battery and cables conection for the tele box was revised. Patient reports diarrhea continues but no blood in it. No further needs at this time. Call light within reach.
[2021-01-24 12:00] VITALS: BP 91/70; PULSE 73; TEMP 98.1
--- NOTE | 2021-01-24 12:00 | NUR ---
SW attended rounds with physician and team. Patient is due to have a procedure on 01/25/21 at 8am. SW will continue to follow.
--- NOTE | 2021-01-24 14:27 | NUR ---
Patient is in bed watching TV. No complains at the moment. Call light within reach.
--- NOTE | 2021-01-24 14:47 | NUR ---
New wristband was replaced since the old one did not allow to be scanned. Tele removed as ordered.
[2021-01-24 16:00] VITALS: BP 179/81; PULSE 64; TEMP 97.6
--- NOTE | 2021-01-24 17:52 | NUR ---
Patient is taking now the bowel prep for the colonoscopy tomorrow. He has had diarrhea but reports no blood in it. He continues with pain and medication provided PRN. Shift report will be done to the restaurant shift supervisor.
[2021-01-24 20:28] VITALS: BP 121/77; PULSE 73; TEMP 98.5
--- NOTE | 2021-01-24 22:57 | NUR ---
Pt has been ok. Pt got prep for the procedure. pain rated 0/10.VSS. Will continue to monitor.
[2021-01-25] VITALS (12 sets, daily range): BP systolic 99–128; BP diastolic 61–81; PULSE 50–76; TEMP 97.2–98.2
[2021-01-25 06:44] LABS: BASO # 0.1 (0.0-0.2); BASO % 0.7 % (0.0-2.0); CREATININE, serum 0.78 (0.66-1.25); EOS # 0.5 (0.0-0.7); EOS % 7.3 % (0-4.0); GRAN # 4.2 (1.4-6.5); GRAN % 61.1 % (42.2-75.2); LYMPH % 14.6 % (20.0-51.0); MEAN CELL VOLUME 78 fl (80.0-100.0); MEAN CORPUSCULAR HGB CONC 31 g/dl (33.0-37.0); MEAN PLATELET VOLUME 10.3 fl (7.4-10.4); MONO # 1.1 (0.1-0.6); MONO % 15.4 % (1.7-9.3); PLATELET COUNT 399 K/mm3 (130-400); POTASSIUM 3.3 mmol/L (3.4-5.0); RED BLOOD COUNT 3.78 M/mm3 (4.20-5.60); REDCELL DISTRIBUTION WIDTH-CV 22.1 % (11.5-14.5)
[2021-01-25 06:45] LABS: HEMATOCRIT 29.5 % (42.0-52.0); MEAN CORPUSCULAR HEMOGLOBIN 24 pg (27.0-31.0)
[2021-01-25 10:07] LABS: IRON,SERUM < 10 ug/dL (35-150)
[2021-01-25 10:16] LABS: TOTAL IRON BINDING CAPACITY 200 ug/dL (261-462)
--- NOTE | 2021-01-25 18:00 | NUR ---
Patient has been doing well since his colonoscopy this am. Stated having increased pain due to the bowel prep. No complaints of nausea. Replacing potassium per protocol. He is tolerating low fiber diet without issues. He is hoping to discharge soon. No other changes at this time. Call light within reach.
--- NOTE | 2021-01-25 21:42 | NUR ---
IVF INFUSING TO LEFT FOREARM. REPORTS NO STOOLS SINCE COLONOSCOPY TODAY. LAST DOSE OF ORAL POTASSIUM GIVEN. DENIES PAIN AT THIS TIME.
[2021-01-26] VITALS (7 sets, daily range): BP systolic 95–130; BP diastolic 70–87; PULSE 62–84; TEMP 97.5–98.4
--- NOTE | 2021-01-26 06:00 | NUR ---
NO STOOLS THIS SHIFT. IVF CONTINUE TO LEFT FOREARM WITHOUT PROBLEM.
[2021-01-26 07:16] LABS: BASO % 0.2 % (0.0-2.0); EOS % 0.4 % (0-4.0); GRAN # 8.6 (1.4-6.5); GRAN % 78.3 % (42.2-75.2); LYMPH # 1.1 (1.2-3.4); LYMPH % 10.2 % (20.0-51.0); MEAN CELL VOLUME 79 fl (80.0-100.0); MEAN CORPUSCULAR HGB CONC 31 g/dl (33.0-37.0); MONO # 1.1 (0.1-0.6); MONO % 10.3 % (1.7-9.3); PLATELET COUNT 425 K/mm3 (130-400); RED BLOOD COUNT 3.67 M/mm3 (4.20-5.60); REDCELL DISTRIBUTION WIDTH-CV 22.3 % (11.5-14.5)
[2021-01-26 07:17] LABS: HEMOGLOBIN 8.9 g/dl (13.5-18.0); MEAN CORPUSCULAR HEMOGLOBIN 24 pg (27.0-31.0)
[2021-01-26 07:20] LABS: CALCIUM 8.1 mg/dL (8.4-10.2); CREATININE, serum 0.7 (0.66-1.25); POTASSIUM 3.9 mmol/L (3.4-5.0)
--- NOTE | 2021-01-26 08:20 | NUR ---
Patient sitting up on edge of bed. Alert and oriented x 3. Assessment complete. States generalized pain, chronic. Medications given per orders. Patient states he did have liquid stool this AM, no blood noted. Denies further needs at this time.
--- NOTE | 2021-01-26 11:15 | NUR ---
11:15 PT. REPORTS X4 BROWN LIQUID STOOLS MOD AMOUNTS CONTINENT.PT REORTS.
--- NOTE | 2021-01-26 18:57 | NUR ---
Patient doing well throughout the day, reports multiple loose watery stools throughout the day. In Contact isolation. Denies further needs at this time. Will report off to extractions technician.
--- NOTE | 2021-01-26 20:00 | NUR ---
PT INDEPENDENT IN ROOM. TAKE HS MEDS INCLUDING NORCO FOR ABD DISCOMFORT. REPORTS LOOSE STOOLS, NO BLOOD. HAS SCDS OFF DUE TO DIARRHEA URGENCY AT TIMES. SL TO LEFT FOREARM. WILL MONITOR FOR CHANGES.
--- NOTE | 2021-01-27 03:05 | NUR ---
MEDICATED WITH SCHEDULED IV FLAGYL. NORCO 1 TAB PO NOW FOR ABD CRAMPING.
[2021-01-27 04:03] VITALS: BP 120/80; PULSE 74; TEMP 97.9
--- NOTE | 2021-01-27 07:00 | NUR ---
Report received from Joy, NR.. pT in bed resting with eyes closed, will continue to monitor.
[2021-01-27 07:48] VITALS: BP 133/87; PULSE 54; TEMP 97.7
[2021-01-27 07:49] LABS: BASO % 0.2 % (0.0-2.0); EOS % 0.1 % (0-4.0); GRAN # 10.2 (1.4-6.5); GRAN % 75.8 % (42.2-75.2); LYMPH # 1.6 (1.2-3.4); LYMPH % 12.2 % (20.0-51.0); MEAN CELL VOLUME 79 fl (80.0-100.0); MEAN CORPUSCULAR HGB CONC 31 g/dl (33.0-37.0); MEAN PLATELET VOLUME 10.4 fl (7.4-10.4); MONO # 1.4 (0.1-0.6); MONO % 10.4 % (1.7-9.3); PLATELET COUNT 430 K/mm3 (130-400); RED BLOOD COUNT 3.55 M/mm3 (4.20-5.60); REDCELL DISTRIBUTION WIDTH-CV 22.8 % (11.5-14.5)
[2021-01-27 07:50] LABS: HEMOGLOBIN 8.7 g/dl (13.5-18.0); MEAN CORPUSCULAR HEMOGLOBIN 25 pg (27.0-31.0)
[2021-01-27 07:55] LABS: CALCIUM 8.4 mg/dL (8.4-10.2); CREATININE, serum 0.72 (0.66-1.25)
--- NOTE | 2021-01-27 08:30 | NUR ---
Assessment charted. Pt doing well, PRN norco given for chronic pain of 4/10. Pt reports still having diarrhea but it is not watery. Taking some PO, resting in bed, denies other needs. INT to LFA. Will continue to monitor.
[2021-01-27 11:58] VITALS: BP 139/63; PULSE 66; TEMP 97.7
[2021-01-27 17:26] VITALS: BP 154/72; PULSE 45; TEMP 98.1
--- NOTE | 2021-01-27 19:00 | NUR ---
Pt has done well today, resting in bed after getting up to chair and sititng in recliner for many hours today. resting quietly, denies needs, nightshift to resume care.
[2021-01-27 19:20] VITALS: BP 131/75; PULSE 113; TEMP 98.4
--- NOTE | 2021-01-27 21:22 | NUR ---
PT IN BED, IS ALERT AND ORIENTED X4. INDEPENDENT IN ROOM. TAKES SCHEDULED HS MEDS INCLUDING NORCO FOR ABD PAIN 08/16. REPORTS MINIMAL DIARRHEA TODAY. SL TO LEFT WRIST, FLUSHES WITHOUT PROBLEM. REMAINS ON CDIFF ISOLATION.
[2021-01-28 00:04] VITALS: BP 126/80; PULSE 56; TEMP 98.3
[2021-01-28 03:11] VITALS: BP 122/74; PULSE 42; TEMP 97.7
--- NOTE | 2021-01-28 03:44 | NUR ---
MEDICATED WITH NORCO 1 TAB FOR ABD PAIN. IV FLAGYL INFUSING TO LEFT WRIST SL WITHOUT PROBLEM.
--- NOTE | 2021-01-28 04:49 | NUR ---
IV FLAGYL COMPLETE. PT UP TO BATHROOM.
[2021-01-28 06:22] LABS: MEAN CELL VOLUME 77 fl (80.0-100.0); MEAN CORPUSCULAR HGB CONC 31 g/dl (33.0-37.0); MEAN PLATELET VOLUME 9.5 fl (7.4-10.4); PLATELET COUNT 493 K/mm3 (130-400); RED BLOOD COUNT 3.81 M/mm3 (4.20-5.60); REDCELL DISTRIBUTION WIDTH-CV 22.6 % (11.5-14.5)
[2021-01-28 06:31] LABS: HEMATOCRIT 29.3 % (42.0-52.0); HEMOGLOBIN 9.2 g/dl (13.5-18.0); MEAN CORPUSCULAR HEMOGLOBIN 24 pg (27.0-31.0)
[2021-01-28 06:35] LABS: CALCIUM 8.8 mg/dL (8.4-10.2); CREATININE, serum 0.66 (0.66-1.25); POTASSIUM 4.3 mmol/L (3.4-5.0)
--- NOTE | 2021-01-28 06:45 | NUR ---
up and in bathroom independently, bedside shift report received from KEEGAN Hamilton
[2021-01-28 07:17] VITALS: BP 142/91; PULSE 49; TEMP 98
--- NOTE | 2021-01-28 07:27 | NUR ---
awake resting in bed, full assessment completed, see interventions for further info, is independent in room, toothbrush and toothpaste at sink and offered shower but he declines at this time, denies needs
[2021-01-28 07:37] LABS: LYMPHOCYTE 12 % (20.0-51.0); METAMYELOCYTE 1 % (0-0); NEUTROPHILS 84 % (42.0-75.2); PLATELET ESTIMATE INCREASED (NORMAL)
[2021-01-28 07:39] LABS: OVALOCYTES 1+
[2021-01-28 07:40] LABS: SCHISTOCYTES 1+
[2021-01-28 07:41] LABS: ANISOCYTOSIS 1+
--- NOTE | 2021-01-28 09:20 | NUR ---
c/o pain 10/14, medicated with norco 5mg 1 tab
--- NOTE | 2021-01-28 10:45 | NUR ---
resting in bed and denies needs
[2021-01-28 10:59] VITALS: BP 134/54; PULSE 58; TEMP 98
--- NOTE | 2021-01-28 12:00 | NUR ---
is ready for lunch, denies needs
--- NOTE | 2021-01-28 13:15 | NUR ---
up in chair watching Tv,
[2021-01-28 16:15] VITALS: BP 113/69; PULSE 40; TEMP 98.2
--- NOTE | 2021-01-28 16:20 | NUR ---
up to bathroom independently, then back to bed, heart rate high 30s to low 40s on dynamap, radial pulse also approx 45, heart rate is slow and irregular on auscultaion, call Dr Esteves and left message for her to call this nurse
--- NOTE | 2021-01-28 16:45 | NUR ---
spoke with Dr Christopher and order for EKG received, cardiopulmonary in and EKG completed, also placed on telemetry at this time
--- NOTE | 2021-01-28 18:51 | NUR ---
bedside shift report given to KEEGAN Hamilton
--- NOTE | 2021-01-28 19:30 | NUR ---
IVPB COMPLETE, FLUSHED SL TO LEFT WRIST. NORCO 1 TAB PO FOR ABD DISCOMFORT.
[2021-01-28 19:31] VITALS: BP 116/78; PULSE 77; TEMP 98
--- NOTE | 2021-01-29 03:16 | NUR ---
IVPB INFUSING WITHOUT PROBLEM. NORCO 1 TAB PO GIVEN FOR ABD DISCOMFORT.
[2021-01-29 03:17] VITALS: BP 149/77; PULSE 63; TEMP 98
--- NOTE | 2021-01-29 04:15 | NUR ---
SL TO LEFT WRIST FLUSHES WELL. OUTDATES TODAY, PT POTENTIALLY DISCHARGING, WILL NOT CHANGE AT THIS TIME.
[2021-01-29 07:11] VITALS: BP 130/79; PULSE 62; TEMP 98.3
--- NOTE | 2021-01-29 08:30 | NUR ---
Patient is lying in bed, alert and oriented x 4, vital signs stable. Continues reporting pain, PRN provided. Pt to be discharge today. No further needs at this time. Call light within reach.
[2021-01-29] MEDS ORDERED: VANCOCIN H125 MG/CAP PO (08:54)
[2021-01-29] MEDS ORDERED: FERROUS SU325 MG/TAB PO (08:54)
[2021-01-29] MEDS ORDERED: LIALDA 1.2 GM1.2 GM PO (08:55)
[2021-01-29] MEDS ORDERED: PREDNISONE10 MG PO (08:56)
[2021-01-29 11:12] VITALS: BP 107/69; PULSE 63; TEMP 98.1
--- NOTE | 2021-01-29 16:01 | NUR ---
Patient is resting in bed watching TV. Asked for some pain medication before to be discharged. PRN provided. No further needs at this time.
--- NOTE | 2021-01-29 17:45 | NUR ---
Discharge information was provided and questions answered. Patient was walked out by Paula ALLISON.
== END 2021-01-29 17:40 | disposition home or self-care (01) | DRG 372 ==
LOC: COL.ER 15:32 → SURG 18:30 → COL.ER 18:30 → SURG 18:30 → COL.ER 01-23 12:36 → SURG 01-23 12:36
PROVIDERS: Internal Medicine; Internal Medicine Gastroenterology; Nurse Practitioner Family; Personal Emergency Response Attendant; Physician Assistant; ADMIT Student in an Organized Health Care Education/Training Program
PROC: 0DBL8ZX Excision of Transverse Colon, Via Natural or Artificial Opening Endoscopic, Diagnostic (ICD-10-PCS; 2021-01-25)
PROC: 0DBN8ZX Excision of Sigmoid Colon, Via Natural or Artificial Opening Endoscopic, Diagnostic (ICD-10-PCS; 2021-01-25)
PROC: 0DBF8ZX Excision of Right Large Intestine, Via Natural or Artificial Opening Endoscopic, Diagnostic (ICD-10-PCS; 2021-01-25)
PROC: 0DBG8ZX Excision of Left Large Intestine, Via Natural or Artificial Opening Endoscopic, Diagnostic (ICD-10-PCS; principal; 2021-01-25 08:00)
DX: A04.71 Enterocolitis due to Clostridium difficile, recurrent (principal); E44.0 Moderate protein-calorie malnutrition; E78.5 Hyperlipidemia, unspecified; I73.9 Peripheral vascular disease, unspecified; J44.9 Chronic obstructive pulmonary disease, unspecified; R74.01 Elevation of levels of liver transaminase levels; D64.9 Anemia, unspecified; I10 Essential (primary) hypertension; D47.3 Essential (hemorrhagic) thrombocythemia; Z66 Do not resuscitate; K52.9 Noninfective gastroenteritis and colitis, unspecified; E87.6 Hypokalemia; Z95.818 Presence of other cardiac implants and grafts; Z68.20 Body mass index [BMI] 20.0-20.9, adult
CPT/HCPCS: 99223-AI; 99231-AI; 99232-AI; G0378; J0744; J1170; J1756; J2405; J2704; J2765; J2930; J3480; J7030; Q9967

== ENCOUNTER 2021-06-08 08:15 | Day surgery (SDC) | payer BC ==
[~2021-06-08] VITALS: Ht 193 cm; Wt 84.1 kg
[~2021-06-08 08:15] MED LIST changes: +FERROUS SU325 MG/TAB PO; +INCRUSE EL62.5 MCG/A IH; +LIALDA 1.2 GM1.2 GM PO; +PREDNISONE10 MG PO
[2021-06-08 08:41] VITALS: BP 168/100; PULSE 60; TEMP 98.1
[2021-06-08 10:35] VITALS: BP 125/95; PULSE 71
--- NOTE | 2021-06-08 10:35 | NUR ---
Patient returns to room 9 per cart and transfers from the cart to recliner with two person assist. IV fluids infusing. Call light in reach. Temp 98.9 and room air sats 95. Eating muffin and drinking applejuice.
[2021-06-08 10:50] VITALS: BP 142/108; PULSE 69
--- NOTE | 2021-06-08 10:50 | NUR ---
Room air sats 93%. Taking snack.
--- NOTE | 2021-06-08 11:00 | NUR ---
Dr. Houser in the room and talks with patient. All questions answered.
[2021-06-08 11:05] VITALS: BP 154/104; PULSE 64
--- NOTE | 2021-06-08 11:05 | NUR ---
IV discontinued and site is free of redness or swelling. Patient is able to dress self.
--- NOTE | 2021-06-08 11:25 | NUR ---
Patient dismissed to home driven by daughter and taken to the front door per wheelchair and assisted into vehicle with instructions in hand.
== END 2021-06-08 11:25 | disposition home or self-care (01) ==
LOC: SDCO 08:15
DX: K51.90 Ulcerative colitis, unspecified, without complications (principal); K51.50 Left sided colitis without complications; K57.30 Diverticulosis of large intestine without perforation or abscess without bleeding; K92.1 Melena; K63.89 Other specified diseases of intestine; I10 Essential (primary) hypertension; I73.9 Peripheral vascular disease, unspecified; G89.29 Other chronic pain; E78.5 Hyperlipidemia, unspecified; J44.9 Chronic obstructive pulmonary disease, unspecified; M54.9 Dorsalgia, unspecified; M19.90 Unspecified osteoarthritis, unspecified site; G62.9 Polyneuropathy, unspecified; Z79.02 Long term (current) use of antithrombotics/antiplatelets; Z79.899 Other long term (current) drug therapy; Z79.891 Long term (current) use of opiate analgesic; Z87.891 Personal history of nicotine dependence
CPT/HCPCS: J2704; J7120

== ENCOUNTER → 2021-07-17 | Outpatient (CLI) | payer BC, MEDICARE | LOC: COL.RAD 07:14 | DX: Z13.6 Encounter for screening for cardiovascular disorders (principal); F17.201 Nicotine dependence, unspecified, in remission; I70.0 Atherosclerosis of aorta ==

== ENCOUNTER → 2022-01-25 | Outpatient (CLI) | payer MEDICARE | LOC: COL.RAD 13:30 | DX: Z12.2 Encounter for screening for malignant neoplasm of respiratory organs (principal); J43.2 Centrilobular emphysema; F17.201 Nicotine dependence, unspecified, in remission ==

== ENCOUNTER 2024-01-14 19:35 | Inpatient (IN) | payer MEDICARE, BC ==
[2024-01-14] VITALS (41 sets, daily range): BP systolic 93–113; BP diastolic 68–93; PULSE 83–92; TEMP 97.6–98.4; O2SAT 91–100
[~2024-01-14] VITALS: Ht 193 cm; Wt 79.6 kg
[~2024-01-14 19:35] MED LIST changes: +ASPIRIN 81M81 MG/TA2 PO; +CARDIZEM CD 12120 MG PO; +MAGNESIUM250 M1 PO; +NEURONTIN300 MG/CAP PO; +PREDNISONE20 MG PO; +TOPROL XL 50MG50 MG PO
[2024-01-14 20:00] LABS: MEAN CELL VOLUME 95 fl (80.0-100.0); MEAN CORPUSCULAR HGB CONC 31 g/dl (33.0-37.0); MEAN PLATELET VOLUME 10.8 fl (7.4-10.4); PLATELET COUNT 282 K/mm3 (130-400); RED BLOOD COUNT 2.36 M/mm3 (4.20-5.60); REDCELL DISTRIBUTION WIDTH-CV 15.1 % (11.5-14.5)
[2024-01-14] MEDS ORDERED: NS 1,000 ML IV ONE (20:00)
[2024-01-14 20:02] LABS: HEMATOCRIT 22.3 % (42.0-52.0); MEAN CORPUSCULAR HEMOGLOBIN 30 pg (27-31)
[2024-01-14 20:16] LABS: ALBUMIN 2.4 g/dL (3.4-4.8); BILIRUBIN,TOTAL 0.3 mg/dL (0.2-1.2); C-REACTIVE PROTEIN 1.77 mg/dL (0.00-0.50); CALCIUM 8.4 mg/dL (8.4-10.2); CREATININE, serum 1.06 mg/dL (0.72-1.25); TOTAL PROTEIN 4.8 g/dl (6.2-8.1)
[2024-01-14 20:28] LABS: BAND 2 % (0-10); LYMPHOCYTE 6 % (20.0-51.0); METAMYELOCYTE 1 % (0-0); MICROCYTOSIS 1+; NEUTROPHILS 89 % (42.0-75.2); NUCLEATED RED BLOOD CELL 2 (0-6)
[2024-01-14] MEDS ORDERED: Pantoprazole 40 MG in NS 100 ML IV ONE (20:30)
[2024-01-14] MEDS ORDERED: Pantoprazole 80 MG in NS 100 ML IV ONE (20:30)
[2024-01-14] MEDS ORDERED: Iohexol 300 - 100 ML VIAL IV ONE (21:45)
[2024-01-14] MEDS ORDERED: MOBIC15 MG PO (21:58)
[2024-01-14] MEDS ORDERED: PREDNISONE 5MG5 MG PO (21:59)
[2024-01-14] MEDS ORDERED: TRELEGY ELLIPT1 EACH IH (22:01)
[2024-01-14 22:03] LABS: COLLECTION METHOD CLEAN CATCH
[2024-01-14 22:07] LABS: URINE APPEARANCE CLEAR (CLEAR/HAZY); URINE BLOOD NEGATIVE (NEGATIVE); URINE COLOR YELLOW (YELLOW); URINE GLUCOSE NEGATIVE (NEGATIVE); URINE KETONE NEGATIVE (NEGATIVE); URINE NITRATE NEGATIVE (NEGATIVE); URINE PROTEIN(semi-quant) NEGATIVE (NEGATIVE); URINE UROBILINOGEN 0.2 E.U/dL (0.2-1.0)
--- NOTE | 2024-01-14 22:11 | NUR ---
Received report from ED nurseAdrianna.
[2024-01-14] MEDS ORDERED: Albuterol 0.083% Neb Soln 2.5 MG/3 ML UD IH PRN (22:15)
--- NOTE | 2024-01-14 23:00 | NUR ---
Patient arrives to ICU room 2 via ED stretcher. Patient is alert and oriented upon arrival; he is able to scoot from ED cot to ICU bed independently - activity tolerated well. Initial vitals within normal limits; he is on room air. He denies pain or discomfort. Arrives receiving one unit of PRBC and protonix drip.
[2024-01-15] VITALS (1031 sets, daily range): BP systolic 11–140; BP diastolic 35–95; PULSE 77–153; TEMP 97.2–98.8; O2SAT 46–100
--- NOTE | 2024-01-15 | NUR ---
Patient's belongings include street clothes, a wallet, a cell phone and tar pot man, a set of keys, a cane, and a pair of glasses. Patient brought his home medications - they are taken to pharmacy by housekeeper and laundry assistant, Azalea. Patient denies use of safe for belongings when offered by this RN. Per patient's request, belongings are left at bedside.
[2024-01-15 00:44] LABS: HEMATOCRIT 22.6 % (42.0-52.0); HEMOGLOBIN 7.6 g/dl (13.5-18.0)
[2024-01-15] MEDS ORDERED: NS 1,000 ML IV SCH (01:30)
[2024-01-15] MEDS ORDERED: Ondansetron 4 MG/2 ML VIAL IV PRN (04:30)
[2024-01-15] MEDS ORDERED: Morphine 4 MG/ML VIAL IV PRN (04:30)
[2024-01-15 04:36] LABS: MEAN CORPUSCULAR HGB CONC 33 g/dl (33.0-37.0); PLATELET COUNT 218 K/mm3 (130-400); RED BLOOD COUNT 2.51 M/mm3 (4.20-5.60); REDCELL DISTRIBUTION WIDTH-CV 15.1 % (11.5-14.5)
[2024-01-15 04:46] LABS: HEMATOCRIT 22.7 % (42.0-52.0); HEMOGLOBIN 7.4 g/dl (13.5-18.0); MEAN CELL VOLUME 90 fl (80.0-100.0); MEAN CORPUSCULAR HEMOGLOBIN 29 pg (27-31)
[2024-01-15 04:50] LABS: CREATININE, serum 0.79 mg/dL (0.72-1.25); POTASSIUM 4.3 mEq/L (3.5-4.5)
[2024-01-15 05:45] LABS: BAND 3 % (0-10); LYMPHOCYTE 12 % (20.0-51.0); NEUTROPHILS 77 % (42.0-75.2)
[2024-01-15 05:46] LABS: PLATELET ESTIMATE NORMAL (NORMAL)
[2024-01-15] MEDS ORDERED: Dextrose 50% Water 25 GM/50 ML SYRINGE IV PRN (06:00)
[2024-01-15] MEDS ORDERED: Dextrose (Glucose) 15 GM (4 x 3.75 GM) Chewable TABLET PACK PO PRN (06:00)
[2024-01-15] MEDS ORDERED: Glucagon 1 MG VIAL IM PRN (06:00)
[2024-01-15] MEDS ORDERED: Insulin Lispro (HumaLOG) SQ SCH (06:00)
[2024-01-15] MEDS ORDERED: Budesonide Neb Susp 0.5 MG/2 ML AMP IH SCH (07:00)
--- NOTE | 2024-01-15 08:53 | NUR ---
direct service worker met with pt to discuss discharge planning. He reports to live alone in [place] and sees Dr. Alvarado for PCP needs. He obtains medications from [facility] with no difficulties. He reports his contact as his daughter, Jennifer [phone]. AUBRIE notes a DPOA-HC on file listing Teri, pt reports this is no longer valid as it is his nephew's and they are not on good terms. He created a new one with this SW and KEEGAN Collier listing his daughter and son, Ephraim as secondary. Pt signed and verbalized understanding. RN and AUBRIE witnessed signature. Copies and original provided, copy in chart. Pt states he was independent with ADLS, but was hesitant regarding this and states he manages. He uses a cane for DME. He does report a recent fall early this week. He states he has used [facility] in the past and would be interested in them again. AUBRIE advised PT/OT will evaluate him and make any reccomendations for SW to address. Pt verbalized understanding. PT/OT Pending Discharge Plan: home, tbd
[2024-01-15] MEDS ORDERED: predniSONE 5 MG TAB PO SCH (09:00)
[2024-01-15] MEDS ORDERED: Pantoprazole 40 MG in NS 10 ML IV SCH (09:00)
[2024-01-15] MEDS ORDERED: Fluticasone/Umeclidinium/Vilanterol **** subs to Budesonide + Umeclid/Vilant IH SCH (09:00)
[2024-01-15] MEDS ORDERED: Umeclidinium/Vilanterol 62.5-25 MCG INHALATION/INHALER IH SCH (09:00)
[2024-01-15] MEDS ORDERED: Umeclidinium 62.5 MCG **** subs to Tiotropium 5 mcg IH SCH (09:00)
[2024-01-15] MEDS ORDERED: Tiotropium 2.5 MCG Respimat MDI IH SCH (09:00)
[2024-01-15] MEDS ORDERED: Gabapentin 300 MG CAP PO SCH (09:00)
[2024-01-15 12:32] LABS: HEMATOCRIT 20.3 % (42.0-52.0)
[2024-01-15 12:33] LABS: HEMOGLOBIN 6.6 g/dl (13.5-18.0)
[2024-01-15 16:55] LABS: HEMATOCRIT 20.5 % (42.0-52.0); HEMOGLOBIN 6.8 g/dl (13.5-18.0)
[2024-01-15] MEDS ORDERED: NS 500 ML IV ONE ×2 (17:30→18:00)
--- NOTE | 2024-01-15 17:30 | NUR ---
Central line placed by Dr. Christopher at bedside due to patient decline and the need to transfuse large amounts of PRBCs and fluids, patient also started on levophed. Time-out performed by Dr. Christopher and KEEGAN Ambrosio. Patient consent signed and on chart. Patient tolerated procedure well.
[2024-01-15] MEDS ORDERED: Octreotide 500 MCG in NS 500 ML IV SCH (18:00)
[2024-01-15] MEDS ORDERED: Octreotide 100 MCG/ML 1 ML VIAL IV ONE (18:00)
--- NOTE | 2024-01-15 18:28 | NUR ---
PATIENT HAS HAD SIGNIFICANT CHANGES FROM THIS MORNING. PASSING AN UNQUANTIFIABLE LARGE AMOUNT OF LUIS RED BLOOD WITH LARGE CLOTS FROM FROM RECTUM, AND VOMITTING 100ML OF LUIS RED BLOOD WITH MUCUS. PATIENT IS CURRENTLY ON AIRVO FOR RESPIRATORY SUPPORT. AT THIS TIME PATIENT HAS RCVD 3U OF PRBC D\T HGB BEING 6.6.
--- NOTE | 2024-01-15 19:30 | NUR ---
Received updates from KEEGAN Collier. Patient resting quietly in bed. Daughter, Jennifer, at bedside. Patient tachycardic with rates low 100s. Patient receiving 60L, 95% FiO2 via Airvo, tolerating well. Patient does not appear to be in any respiratory distress at this time. Other vitals within normal limits. He continues to receive levophed and octreotide drips. One liter NS bolus running at this time. Patient's sixth total unit of blood started at 1922 and continues to infuse at this time. Patient awaiting transfer to a higher level of care. Patient and daughter aware.
--- NOTE | 2024-01-15 19:31 | NUR ---
PATIENT ORDERED CENTRAL LINE, L SUBCLAVIAN FOR MULTIPLE BLOOD PRODUCTS AND FLUIDS RUNNING SIMULTANEOUSLY. LEVOPHED ALSO INTIATED AFTER LINE WAS PLACED. 16 FR CATHETER INSERTED FOR ACCURATE I&O PER ORDER. PALE YELLOW CLEAR URINE RETURN, 30CC. NEW PERIPHERAL LINE IN R AC, RWRIST AND L AC ARE DISCONTINUED D/T LEAKING OF FLUIDS AROUND THE SITES. CATHETER TIPS INTACT UPON REMOVAL.
[2024-01-15] MEDS ORDERED: NS 1,000 ML IV ONE (19:45)
[2024-01-15 20:58] LABS: MEAN CELL VOLUME 94 fl (80.0-100.0); MEAN CORPUSCULAR HGB CONC 34 g/dl (33.0-37.0); MEAN PLATELET VOLUME 10.6 fl (7.4-10.4); RED BLOOD COUNT 3.26 M/mm3 (4.20-5.60); REDCELL DISTRIBUTION WIDTH-CV 14.4 % (11.5-14.5)
[2024-01-15 21:03] LABS: HEMOGLOBIN 10.3 g/dl (13.5-18.0); MEAN CORPUSCULAR HEMOGLOBIN 32 pg (27-31)
[2024-01-15 21:04] LABS: HEMATOCRIT 30.5 % (42.0-52.0); PLATELET COUNT 113 K/mm3 (130-400)
[2024-01-15 21:15] LABS: INR 1.3 (0.8-3.0); PROTHROMBIN TIME 13.5 SECONDS (9.7-12.8)
[2024-01-15 21:27] LABS: ALBUMIN 1.5 g/dL (3.4-4.8); BILIRUBIN,TOTAL 0.5 mg/dL (0.2-1.2); CALCIUM 6.1 mg/dL (8.4-10.2); CREATININE, serum 0.81 mg/dL (0.72-1.25); POTASSIUM 4.8 mEq/L (3.5-4.5); TOTAL PROTEIN 2.2 g/dl (6.2-8.1)
[2024-01-15 21:29] LABS: BAND 1 % (0-10); LYMPHOCYTE 1 % (20.0-51.0); METAMYELOCYTE 2 % (0-0); NEUTROPHILS 93 % (42.0-75.2)
--- NOTE | 2024-01-15 22:15 | NUR ---
Patient departs with EMS at this time. Upon departure, patient continues to receive levophed drip, octreotide, one unit of FFP, and one unit of platelets. Last BP of 130/80. Patient receiving 15L oxygen via non-rebreather mask, tolerating well. Patient's daughter, Jennifer, aware of transfer.
--- NOTE | 2024-01-15 23:03 | NUR ---
Report called to [facility] nurse, Sissy, at this time.
== END 2024-01-15 22:15 | disposition critical access hospital (66) | DRG 379 ==
LOC: COL.ER 19:35 → ICU 21:04
PROVIDERS: Emergency Medicine; Internal Medicine; Internal Medicine Gastroenterology; Nurse Practitioner Family; ADMIT Internal Medicine
DX: K26.6 Chronic or unspecified duodenal ulcer with both hemorrhage and perforation (principal)
CPT/HCPCS: A9270; J2270; J2354-JA; J2405; J2470; J2543; J7030; J7040; J7060; P9016; P9035; Q9967